=== PATIENT | female | born 1940 | race Caucasian/White ===

== ENCOUNTER 2024-03-02 15:41 | Emergency (ER) | payer OTHER, SELFPAY ==
[2024-03-02 15:45] VITALS: BP 119/73
[2024-03-02 15:48] VITALS: BP 119/73
[2024-03-02 15:52] VITALS: BMI 23.0
[2024-03-02 16:00] VITALS: BP 122/70
--- NOTE | 2024-03-02 16:02 | ED.GENMED ---
History of Present Illness
General
Chief Complaint: Allergic Reaction
Source: patient
Exam Limitations: none
Time Seen by Provider: 03/02/24 15:51
History of Present Illness
History of Present Illness:
83-year-old female apparently had been outside briefly to help with a worker. She was stung by something that caused sudden pain in her right foot. This apparently was followed by diaphoresis lightheadedness and a rash. Medics were called. She
was given 50 of Benadryl and fluids. She is much better at this time. She does feel slightly groggy. She had no airway issues or breathing issues. No history of same.
Past History
Past History
ED Past Medical History: None
ED Past Surgical History: None
Review of Systems
Review of Systems
All Other Systems: Not applicable
Respiratory: Reports no symptoms
Cardiac: Reports no symptoms
Phy Exam
Physical Exam
Physical Exam:
GENERAL: Alert and oriented in no apparent distress. Slightly groggy
EYE: Orbits normal.
NECK: Supple, no significant adenopathy.
ENT: Pharynx without erythema. No drooling no stridor no airway issues
CARDIAC: Regular rate and rhythm without any obvious murmurs.
LUNGS: Clear breath sounds,normal
ABDOMEN: Soft, without focal tenderness or distention
NEUROLOGICAL: Alert and oriented , grossly non-focal
Skin: Discrete area of erythema to the right medial foot just below the medial malleolus. Approximately 10 cm round. Maculopapular rash somewhat linear in nature across her mid abdomen and across her lower back with some involvement of the legs.
Blanching.
MUSCULOSKELETAL: No edema,no deformity.Good color
PSYCH: Normal and appropriate interaction. Mildly groggy
Course
Orders/Labs/Results
Orders:
Orders
03/02/24 15:54
EKG [Electrocardiogram (*1)] Urgent
Reason for Study: Bradycardia / Tachycardia
EKG- Treatment ONCE
03/02/24 15:55
Basic Metabolic Panel Urgent
Complete Blood Count/With Diff Urgent
03/02/24 16:01
Cardiac Monitoring- Treatment ONCE
IV Insert/Care/Rem.- Treatment PRN
Dexamethasone Sod Phosphate [Decadron] 8 mg IV NOW STA
Famotidine [Pepcid] 20 mg IV NOW STA
Pulse Ox/cont/shift [RESP] Stat
Quantity: 1
Abnormal Lab Results
03/02/24
15:55
RBC 3.60 L 10^6/uL
(4.20-5.40)
Hgb 11.5 L g/dL
(12.0-16.0)
Hct 32.6 L %
(37.0-47.0)
MCH 31.9 H pg
(27.0-31.0)
Chloride 108 H mmol/L
(98-107)
BUN 19 H mg/dl
(7-17)
03/02/24 15:55
03/02/24 15:55
Vital Signs
Initial and Last Documented VS:
Initial Vital Signs
Pulse BP Pulse Ox
59 119/73 95
03/02/24 15:45 03/02/24 15:45 03/02/24 15:45
Last Documented Vital Signs
Temp Pulse Resp BP Pulse Ox
98.1 F 57 14 97/76 98
03/02/24 15:48 03/02/24 17:45 03/02/24 17:45 03/02/24 17:01 03/02/24 16:30
MDM/Problems Addressed
Differential Diagnosis Includes:
This is all consistent with an allergic reaction. Patient improved significantly with Benadryl. Will add Pepcid and steroids. No indication for epinephrine at this time.
*Pulse Oximetry
Patient hypoxic: no
*EKG
Interpreted by ED Provider?: Yes
Interpretation: abnormal
Comparison EKG: no comparison EKG present
Heart Rate: 55
Rate: bradycardiac
Rhythm: sinus
[place]: normal axis
Interval: normal interval
QRS Pattern: normal QRS
Ischemia: non-specific ST changes
*Ceo And President Interpretation
Rate: bradycardiac
Interpretation: normal
Heart Rate: 56
Rhythm: sinus
*Critical Care Note
Total Time (30-74mins, 75-104mins- exclusive of procedures): Not Applicable
Update Note
Update Note:
1655.... Patient has remained stable. Stable vital signs. Airway clear. Rash on the abdomen and back almost resolved.
1800... Patient appears well. Rash has resolved. Discharged to follow-up
ED Attending Note
-
Portions of this chart may have been created with voice recognition software.� Occasional wrong word or��sound alike� substitutions may have occurred due to the inherent limitations of voice recognition software.
Discharge Plan
Departure
Patient Disposition: Home (Routine Discharge)
Date of Disposition: 03/02/24
Time of Disposition: 18:00
Patient with high blood pressure during this ER visit?: No
Discharge Problem:
Acute allergic reaction, Insect bite
Instructions: Allergic Reaction ED, Insect Bites and Stings ED, BLOOD PRESSURE
Prescriptions:
New
prednisone 20 mg tablet
40 mg PO DAILY 3 Days Qty: 6 0RF
Referrals:
UNKNOWN - PT DOES,NOT KNOW [Family Provider] - Follow up in 2-3 days
Activity Restrictions/Additional Instructions:
Take a Claritin for the next few days
Take a Pepcid for the next few days
Interventions
Interventions:
*Risk Screen - Suicide Last Done: 03/02/24 15:53
*General Assessment Last Done: 03/02/24 15:53
*Neglect/Abuse Screening Last Done: 03/02/24 15:53
ED- Fall Risk Assessment Last Done: 03/02/24 18:29
*ED COVID-19 Vaccine History Last Done: 03/02/24 15:53
*Nursing Disposition Last Done: 03/02/24 18:29
ED- Cardiac Assessment Last Done: 03/02/24 16:12
ED- Pulmonary Assessment Last Done: 03/02/24 16:12
ED-Skin Assessment Last Done: 03/02/24 16:21
Discharge Date and Time
Discharge Date/Time: 03/02/24 18:30
Print Language: MOHAWK
[2024-03-02 16:03] LABS: % Basophils 0.2 % (0-2); % Eosinophils 0.7 % (0-6); % Immature Granulocytes 0.3 % (0-0.5); % Lymphocytes 33.1 % (20.5-51.1); % Monocytes 6.9 % (1.7-9.3); % Neutrophils 58.8 % (42.2-75.2); Absolute Monocytes 0.4 10^3/uL (0.1-0.6); Absolute Neutrophils 3.6 10^3/uL (1.4-6.5); Hematocrit 32.6 % (37.0-47.0); Hemoglobin 11.5 g/dL (12.0-16.0); Mean Corp Hgb Conc. 35.3 g/dL (33.0-37.0); Mean Corpuscular Hgb 31.9 pg (27.0-31.0); Mean Corpuscular Volume 90.6 fL (81.0-99.0); Mean Platelet Volume 8.2 fL (7.4-10.4); Nucleated Red Blood Cells % 0 %; Platelet Count 305 10^3/uL (130-400); Red Cell Dist. Width 12.9 % (11.5-14.5); White Blood Cell Count 6.1 10^3/uL (4.8-10.8)
[2024-03-02] MEDS: DECADRON 8 MG IV (16:15)
[2024-03-02] MEDS: PEPCID 20 MG IV (16:15)
[2024-03-02 16:19] LABS: Blood Urea Nitrogen 19 mg/dl (7-17); Calcium 8.7 mg/dl (8.4-10.2); Carbon Dioxide 24 mmol/L (22-30); Chloride 108 mmol/L (98-107); Estimated Creatinine Clearance 64 ml/min; Glucose 97 mg/dl (70-99); Sodium 139 mmol/L (135-145); eGFR > 60.00
[2024-03-02 17:01] VITALS: BP 97/76
== END 2024-03-02 18:30 | disposition home or self-care (01) ==
LOC: EMR 15:41
PROVIDERS: EMERGENCY PHYSICIAN Emergency Medicine
DX: T78.40XA Allergy, unspecified, initial encounter (principal); R21 Rash and other nonspecific skin eruption; M79.671 Pain in right foot; R61 Generalized hyperhidrosis; R42 Dizziness and giddiness; W57.XXXA Bitten or stung by nonvenomous insect and other nonvenomous arthropods, initial encounter
CPT/HCPCS: 99284; 96374; 96375; 94760; 80048; 85025; 93005

== ENCOUNTER → 2024-08-29 09:17 | Outpatient (REF) | payer OTHER, SELFPAY | LOC: HWWDC 09:17 | PROVIDERS: ATTENDING PHYSICIAN Family Medicine | DX: R41.89 Other symptoms and signs involving cognitive functions and awareness (principal); R47.89 Other speech disturbances; F99 Mental disorder, not otherwise specified; Z12.31 Encounter for screening mammogram for malignant neoplasm of breast | CPT/HCPCS: 70450; 77063; 77067 ==

== ENCOUNTER 2025-01-08 08:35 | Outpatient (RCR) | payer OTHER, SELFPAY | END 2025-01-08 23:59 | disposition home or self-care (01) | LOC: ROT 08:35 | PROVIDERS: ATTENDING PHYSICIAN Family Medicine | DX: F03.90 Unspecified dementia, unspecified severity, without behavioral disturbance, psychotic disturbance, mood disturbance, and anxiety (principal); Z73.6 Limitation of activities due to disability; F01.B0 Vascular dementia, moderate, without behavioral disturbance, psychotic disturbance, mood disturbance, and anxiety; F81.0 Specific reading disorder; R41.3 Other amnesia; R41.840 Attention and concentration deficit; R47.01 Aphasia; R25.1 Tremor, unspecified | CPT/HCPCS: 97167; 97535 ==

== ENCOUNTER 2025-02-05 16:22 | Outpatient (RCR) | payer OTHER, SELFPAY | END 2025-02-05 23:59 | disposition home or self-care (01) | LOC: ROT 16:22 | PROVIDERS: ATTENDING PHYSICIAN Family Medicine | DX: F03.90 Unspecified dementia, unspecified severity, without behavioral disturbance, psychotic disturbance, mood disturbance, and anxiety (principal); R41.840 Attention and concentration deficit (principal); R41.844 Frontal lobe and executive function deficit; R47.01 Aphasia; F81.0 Specific reading disorder; Z73.6 Limitation of activities due to disability; F01.A0 Vascular dementia, mild, without behavioral disturbance, psychotic disturbance, mood disturbance, and anxiety; R25.1 Tremor, unspecified | CPT/HCPCS: 97530 ==

== ENCOUNTER 2025-02-10 11:40 | Outpatient (RCR) | payer OTHER, SELFPAY | END 2025-02-10 23:59 | disposition home or self-care (01) | LOC: ROT 11:40 | PROVIDERS: ATTENDING PHYSICIAN Family Medicine | DX: R41.840 Attention and concentration deficit (principal); R41.844 Frontal lobe and executive function deficit; R47.01 Aphasia; F81.0 Specific reading disorder; Z73.6 Limitation of activities due to disability; F01.A0 Vascular dementia, mild, without behavioral disturbance, psychotic disturbance, mood disturbance, and anxiety; R25.1 Tremor, unspecified | CPT/HCPCS: 92507; 92523; 97530; 97535 ==

== ENCOUNTER 2025-04-07 07:11 | Outpatient (RCR) | payer OTHER, SELFPAY | END 2025-04-07 23:59 | disposition home or self-care (01) | LOC: ROT 07:11 | PROVIDERS: ATTENDING PHYSICIAN Family Medicine | DX: R41.840 Attention and concentration deficit (principal); R41.844 Frontal lobe and executive function deficit; R47.01 Aphasia; F81.0 Specific reading disorder; Z73.6 Limitation of activities due to disability; F01.A0 Vascular dementia, mild, without behavioral disturbance, psychotic disturbance, mood disturbance, and anxiety; R25.1 Tremor, unspecified; F01.C0 Vascular dementia, severe, without behavioral disturbance, psychotic disturbance, mood disturbance, and anxiety; M35.3 Polymyalgia rheumatica; R47.89 Other speech disturbances; R41.841 Cognitive communication deficit | CPT/HCPCS: 92507; 97530; 97535 ==

== ENCOUNTER 2025-05-08 07:18 | Outpatient (RCR) | payer OTHER, SELFPAY | END 2025-05-08 23:59 | disposition home or self-care (01) | LOC: ROT 07:18 | PROVIDERS: ATTENDING PHYSICIAN Family Medicine | DX: R41.840 Attention and concentration deficit (principal); R41.844 Frontal lobe and executive function deficit; R47.01 Aphasia; F81.0 Specific reading disorder; Z73.6 Limitation of activities due to disability; F01.A0 Vascular dementia, mild, without behavioral disturbance, psychotic disturbance, mood disturbance, and anxiety; R25.1 Tremor, unspecified; M35.3 Polymyalgia rheumatica; R47.89 Other speech disturbances; R41.841 Cognitive communication deficit | CPT/HCPCS: 92507; 97530; 97535 ==

== ENCOUNTER 2025-05-15 09:24 | Outpatient (RCR) | payer OTHER, SELFPAY | END 2025-05-15 23:59 | disposition home or self-care (01) | LOC: ROT 09:24 | PROVIDERS: ATTENDING PHYSICIAN Family Medicine | DX: R41.840 Attention and concentration deficit (principal); R41.844 Frontal lobe and executive function deficit; R47.01 Aphasia; F81.0 Specific reading disorder; Z73.6 Limitation of activities due to disability; F01.A0 Vascular dementia, mild, without behavioral disturbance, psychotic disturbance, mood disturbance, and anxiety; R25.1 Tremor, unspecified; M35.3 Polymyalgia rheumatica; R47.89 Other speech disturbances; R41.841 Cognitive communication deficit | CPT/HCPCS: 92507; 97530; 97535 ==

== ENCOUNTER 2025-07-17 16:51 | Observation (INO) | payer OTHER, SELFPAY ==
[2025-07-17 11:39] VITALS: BP 149/72
--- NOTE | 2025-07-17 12:53 | ED.GENMED ---
History of Present Illness
General
Chief Complaint: Head Injury
Source: patient
Time Seen by Provider: 07/17/25 12:00
History of Present Illness
History of Present Illness:
84-year-old female with no reported past medical history presents the emergency department with a friend for evaluation after she had an accidental fall at home today stating she just tripped over her own feet and onto the ground believing she fell
onto cement surface. Patient struck the back of her head on the ground and has a mild headache, no LOC, no vomiting, no visual changes or extremity related injuries. Patient is not on any anticoagulant medication. She was able to get herself up
off the ground and go inside, made herself a hot bath and then contacted her friend who came over to get her. Patient's friend brought her to urgent care but was referred to the ER for further evaluation. Patient notes that this is her first fall.
Friend is concerned about patient's wellbeing as she currently lives on her own.
Past History
Past History
ED Past Medical History: None
ED Past Surgical History: None
Social History
Tobacco: Non-smoker
Alcohol: None
Drug: None
Personal:
Living: alone
Review of Systems
Review of Systems
All Other Systems: ROS reviewed and negative except as documented in HPI and ROS
Phy Exam
Physical Exam
Physical Exam:
GENERAL: Alert , in no apparent distress
EYE: clear conjunctiva b/l
HEAD: Small contusion mid occiput
NECK: No focal midline tenderness
ENT: o/p clr, mmm.
CARDIAC: Regular rate and rhythm .
LUNGS: Clear breath sounds bilaterally, no acute respiratory distress, no wheezes/rales/rhonchi
ABDOMEN: Soft, without focal tenderness, no r/g, no cvat
NEUROLOGICAL: Alert and oriented to self only, not place or time
SKIN: Warm and dry, skin intact.
MUSCULOSKELETAL: well perfused.
PSYCH: Normal and appropriate interaction.
Scores
Heart Failure Risk
Heart Failure Risk Score: Not Applicable
Heart Score for Chest Pain Patients
STEMI patient?: Not applicable
Withdrawal Assessment of Alcohol
Withdrawal Assessment Completed?: Not applicable
Course
Orders/Labs/Results
Orders:
Orders
07/17/25 12:06
CT Cervical Spine W/o Iv Contr Urgent
Comment:
Reason For Exam: fall, head/neck injury
CT Head W/o Iv Contrast Urgent
Comment:
Reason For Exam: fall, head/neck injury
07/17/25 12:14
Case Management Consult ONCE
Case Management Consult: VN/Home Care
07/17/25 13:39
Physical Therapy Consult [Pt Eval And Treat] Urgent
Activity Level: Ambulate
07/17/25 15:16
Complete Blood Count/With Diff Urgent
Comprehensive Metabolic Panel Urgent
07/17/25 15:27
Urinalysis Reflex To Culture Urgent
Date Specimen was Collected: 07/17/25
Time Specimen was Collected: 15:25
Urine Microscopic Reflex Cult Urgent
Urine Culture Urgent
ZAHEER Source: U
Specimen Description:
Date Specimen was Collected: 07/17/25
Time Specimen was Collected: 15:25
07/17/25 16:24
Admit/Transfer Patient As Directed
Co-Sign Provider:
Level of Care: Observation services
Assign to:: Medical/Surgical
Physician / Group: htay
Diagnosis: Fall, unsteady due to IV Benadrl forADE to insect bite
07/17/25 16:26
Code Status As Directed
Resuscitation Status: Full Code
Abnormal Lab Results
07/17/25 07/17/25
15:16 15:27
WBC 12.0 H 10^3/uL
(4.8-10.8)
RBC 3.93 L 10^6/uL
(4.20-5.40)
Hct 36.8 L %
(37.0-47.0)
MCH 31.8 H pg
(27.0-31.0)
Absolute Neuts (auto) 9.6 H 10^3/uL
(1.4-6.5)
Absolute Monos (auto) 0.7 H 10^3/uL
(0.1-0.6)
Neutrophils % 80.1 H %
(42.2-75.2)
Lymphocytes % 13.4 L %
(20.5-51.1)
Creatinine 0.5 L mg/dL
(0.6-1.0)
Glucose 141 H mg/dl
(70-99)
Ur Occult Blood Reflex 2+ A
(Negative)
Leukocyte Esterase Rfl 2+ A
(Negative)
Urine WBC (Reflex) 11-15 A /HPF
(0-5)
Urine Bacteria (Reflex) Moderate A
(Negative)
07/17/25 15:16
07/17/25 15:16
Vital Signs
Initial and Last Documented VS:
Initial Vital Signs
Temp Pulse Resp BP Pulse Ox
98.4 F 62 18 149/72 99
07/17/25 11:39 07/17/25 11:39 07/17/25 11:39 07/17/25 11:39 07/17/25 11:39
Last Documented Vital Signs
Temp Pulse Resp BP Pulse Ox
98.7 F 71 18 134/58 99
07/17/25 15:03 07/17/25 15:03 07/17/25 15:03 07/17/25 15:03 07/17/25 15:03
MDM/Problems Addressed
Differential Diagnosis Includes:
Accidental fall
Contusion
Concussion
ICH
Calvarial injury
Dementia
eligibility services representative referall
MDM/Problems Addressed:
84-year-old female presenting to the ER for evaluation following an accidental fall resulting in minor head injury. Patient without any LOC, did not take anything for her pain prior to arrival and is currently declining anything. Patient here with
a close friend who is concern for patient's overall wellbeing and intubated patient has had some functional decline recently. Currently does not have any family that lives close by and is concern for patient's safety. Will obtain a case management
consult to help facilitate further care in the home. CT of the head and cervical spine ordered.
*Radiology
Radiology exam reviewed: radiology read reviewed
*Pulse Oximetry
SaO2: 99
Oxygen Mode of Delivery: Room air
Patient hypoxic: no
*Critical Care Note
Total Time (30-74mins, 75-104mins- exclusive of procedures): Not Applicable
Patient Management
Social determinants of health affecting care: Living situation and Poor outpatient follow-up
Discussion with other providers: Hospitalist and Other
Escalation/DeEscalation of care consider admission/obs:
Patient seen by physical therapy who states patient cannot safely be discharged home and recommend rehab/SNF. Patient is adamant she is not going to a rehab or SNF facility and that she only wants to be discharged home. Patient does not have any
family that lives locally that can come and stay with her this evening. I spoke to the patient's daughter who is the listed emergency contact who lives outside of the [place] area and would be able to pick and shovel man the patient from the hospital tomorrow and
assumed care for the patient. Will check labs and urine with plan to admit to the hospitalist team as patient cannot be safely discharged home.
ED Attending Note
-
Portions of this chart may have been created with voice recognition software.� Occasional wrong word or��sound alike� substitutions may have occurred due to the inherent limitations of voice recognition software.
Discharge Plan
Departure
Patient Disposition: Admit
Date of Disposition: 07/17/25
Time of Disposition: 15:56
Presentation/result/management discussed w/ accepting MD/DO: Hospitalist
Discharge Problem:
Accidental fall, Dementia
Prescriptions:
No Action
rosuvastatin [Crestor] 5 mg Tablet
5 mg PO DAILY
Referrals:
Leana Murillo MD [Family Provider, Family Practice]
Interventions
Interventions:
*Risk Screen - Suicide Last Done: 07/17/25 11:39
*General Assessment Last Done: 07/17/25 11:39
*Neglect/Abuse Screening Last Done: 07/17/25 11:39
*ED- Fall Risk Assessment Last Done: 07/17/25 12:31
*ED COVID-19 Vaccine History Last Done: 07/17/25 12:31
*ED Influenza Vaccine History Last Done: 07/17/25 12:31
ED- Neurological Assessment Last Done: 07/17/25 12:31
ED-Skin Assessment Last Done: 07/17/25 12:31
Discharge Date and Time
Print Language: MOZAMBICAN
--- NOTE | 2025-07-17 13:39 | EDCM ---
Chart reviewed Consult received
Spoke with patient and her friend Kisha
Lives alone in a 2nd story home. [address]
Pt is NOT driving but able to cook her meals
States her one son lives in [place]
Another son in [facility] would coordinate [facility] for her appointments
Dtr Sue is local?
LVM with Sue
PCP Dr. Stephens
RX plan yes
Pharmacy [facility]
hx of [facility]
no hx of SNF
DCP : discussed with SHERIDAN Ruiz. PT consult pending
Cm will continue to follow up for dcp needs
[2025-07-17 14:02] VITALS: BP 138/86
[2025-07-17 15:03] VITALS: BP 134/58
[2025-07-17 15:04] VITALS: BMI 24.6
[2025-07-17 15:23] LABS: Hematocrit 36.8 % (37.0-47.0); Hemoglobin 12.5 g/dL (12.0-16.0); Mean Corp Hgb Conc. 34.0 g/dL (33.0-37.0); Mean Corpuscular Volume 93.6 fL (81.0-99.0); Nucleated Red Blood Cells % 0 %; Platelet Count 334 10^3/uL (130-400); Red Cell Dist. Width 12.8 % (11.5-14.5)
[2025-07-17 15:41] LABS: ALT (SGPT) 25 U/L (0-35); AST (SGOT) 26 U/L (14-36); Albumin 4.8 g/dl (3.5-5.0); Alkaline Phosphatase 46 U/L (38-126); Blood Urea Nitrogen 12 mg/dl (7-17); Calcium 9.6 mg/dl (8.4-10.2); Carbon Dioxide 28 mmol/L (22-30); Chloride 104 mmol/L (98-107); Estimated Creatinine Clearance 58 ml/min; Glucose 141 mg/dl (70-99); Potassium 4.3 mmol/L (3.5-5.1); Sodium 140 mmol/L (135-145); Total Protein 7.8 g/dl (6.3-8.2); eGFR > 60.00
--- NOTE | 2025-07-17 15:47 | CM ---
Dtr Sue called from [place] [phone]
Dtr reported that patient was getting worked up for 'vascular dementia' by her PCP
PT consult reviewed
Spoke with patient and her friend Esme at ED bedside.
Patient is agreeable with plan to stay overnight. Per Esme dtr Sue [place] coming [place] tomorrow from [place]
Cm will continue to follow up for dcp needs
[2025-07-17 16:02] LABS: Urine Character Clear (Clear)
--- NOTE | 2025-07-17 16:13 | HPS.HSE ---
Family Physician
-
Family Physician: Leana Murillo MD
Chief Complaint
-
Fall/unable to ambulate safely
History of Present Illness
HPI�
84F Lives alone, recently loss the spouse HX Dementia ( process of workimg up ) seen at ER:
- BiB patient friend and she left - per ER ROADWAY ENGINEER Friend is concerned about patient's wellbeing as she currently lives on her own.
- for evaluation s/p accidental fall at home today
- stating she just tripped over her own feet and onto the ground believing she fell onto cement surface.
- struck the back of her head on the ground
- reports mild [place] , no LOC, no vomiting, no visual changes or extremity related injuries per ER ROADWAY ENGINEER HPI
- not on any anticoagulant medication.
- Patient's friend brought her to urgent care but was referred to the ER for further evaluation.
Medical History
Past Medical History
Past Medical History: Reports Dementia (per document ) and Hypercholesterolemia
Past Surgical History: Reports None
Social History
Tobacco: Non-smoker
Alcohol: None
Family History
Family History: Not pertinent
Allergies / Home Medications
Allergies reflects when Allergies were last updated in [facility].
Home Medications with original date entered in [facility]
Allergy/Medication List:
Allergies
Allergy/AdvReac Type Severity Reaction Status Date / Time
No Known Allergies Allergy Verified 07/17/25 15:05
Home Medications
rosuvastatin 5 mg tablet (Crestor) 5 mg PO DAILY High Cholesterol 07/17/25
Review of Systems
-
Constitutional: Reports See HPI
EENT: Reports No Symptoms
Respiratory: Reports No Symptoms
Cardiac: Reports No Symptoms
Abdomen/GI: Reports No Symptoms
: Reports No Symptoms
Musculoskeletal: Reports No Symptoms
Skin: Reports No Symptoms
Neurological: Reports See HPI
Endocrine: Reports No Symptoms
Hematologic/Lymphatic: Reports No Symptoms
Psych: Reports No Symptoms
Physical Exam
Vital Signs
Vital Signs
Temp Pulse Resp BP Pulse Ox
98.7 F 71 18 134/58 99
07/17/25 15:03 07/17/25 15:03 07/17/25 15:03 07/17/25 15:03 07/17/25 15:03
Physical Exam
General: No Apparent Distress and Other (looks drowsy )
HEENT: NormoCephalic and Anicteric
Respiratory: Clear; No Wheezes
Cardiac: S1/S2 and Regular Rhythm; No Bradycardia or Tachycardia
Breast: Deferred by me
GI: Soft, Non Tender and Non Distended
Musculoskeletal: No Edema
Skin: Warm
Neuro: Alert and Nonfocal/grossly intact; No Oriented, Slurred Speech or Facial Droop
Psych: Calm, Confused and Other (apparent dementia )
Laboratory Results
-
07/17/25 15:16
07/17/25 15:16
Laboratory Results
Total Bilirubin 0.6 mg/dl (0.2-1.3) 07/17/25 15:16
AST 26 U/L (14-36) 07/17/25 15:16
ALT 25 U/L (0-35) 07/17/25 15:16
Alkaline Phosphatase 46 U/L (38-126) 07/17/25 15:16
Data Reviewed
-
CT Scan: Report Reviewed by me
Medical Tests (Nuc Med, Echo, EKG etc): Report Reviewed by me
Lab Data: Labs Reviewed by me
Impression/Plan
-
Vital Signs
Temp Pulse Resp BP Pulse Ox
98.7 F 71 18 134/58 99
07/17/25 15:03 07/17/25 15:03 07/17/25 15:03 07/17/25 15:03 07/17/25 15:03
Labs
07/17/25
15:16
WBC 12.0 H
Hgb 12.5
Plt Count 334
Potassium 4.3
Carbon Dioxide 28
BUN 12
Creatinine 0.5 L
eGFR > 60.00
Glucose 141 H
EKG
SINUS BRADYCARDIA WITH 1ST DEGREE A-V BLOCK
RSR' OR QR PATTERN IN V1 SUGGESTS RIGHT VENTRICULAR CONDUCTION DELAY
BORDERLINE ECG
NO PREVIOUS ECGS AVAILABLE
Confirmed by KACI DEAN DO ([id number]) on 03/04/2024 12:26:00 PM
Combined report of HCT plus CT Cervical Spine W/o Iv Contr; CT Head W/o Iv Contrast
1. No acute intracranial abnormality noted.
2. No acute fracture or subluxation of the cervical spine.
Multilevel degenerative changes of the cervical spine.
NO PRIOR hospitalist admission:
ASSESSMENT & PLAN
Fall - no significant injury
- NEG HCT
- NEG CT Cx spien
- Stable HD status
- Fall precaution
- PT/OT
- CRM follow up for safe disposition
- Observation
Dementia
- Lives alone
- Recent loss of the spouse
HLD
- on Rosuvastatin
Hospitalist discussed the case with Daughter Sue [employer]
- she will come in the morning and will d/w primary hosptalist of the morning
DVT Px: SQH
Full code
OBS MS
[2025-07-17 16:14] LABS: Urine Red Blood Cell 0-2 /HPF (0-2)
[2025-07-17 18:28] VITALS: BP 165/75; BMI 23.1
--- NOTE | 2025-07-17 18:51 | PTCARENOTE ---
pt new admission. pt is confused w/ hx of dementia. pt is AAO*self, room air. denies any pain. neurochecks. Q4h. pt is on bed alarm. call membreno within the reach. oriented to the room.
[2025-07-17 19:24] VITALS: BP 132/58
[2025-07-17] MEDS: HEPARIN 5000 UNITS SC (19:37)
[2025-07-18 03:52] VITALS: BP 108/62
[2025-07-18 07:10] VITALS: BP 125/74
--- NOTE | 2025-07-18 07:49 | W.PN.HOSP.TC ---
Today's Communication/Plan
-
Discharge today
Assessment / Plan
Assessment / Plan
Physical Exam
General: No Apparent Distress
HEENT: Normocephalic
Respiratory: Clear to Auscultation Bilaterally
Cardiac: S1/S2 and Regular Rhythm
GI: Soft, Non Tender and Non Distended. Positive bowel sounds.
Musculoskeletal: No Edema
Skin: Warm. Dry.
Neuro: Alert, Awake and Oriented x3, Cranial Nerves 2 through 12 grossly intact, strength and sensation grossly intact bilaterally in both upper and lower extremities. Finger to nose intact.
Psych: Calm
Assessment/Plan
Fall - no significant injury
- NEG HCT
- NEG CT Cx spine
- Stable HD status
- Fall precaution
- PT/OT
- CRM follow up for safe disposition
- Doing well, no new problems today, okay for discharge home with patient's daughter who will be with the patient this weekend
Multilevel degenerative changes of the cervical spine
Dementia
- Lives alone
- Recent loss of the spouse
Hyperlipidemia
- on Rosuvastatin
Hospitalist discussed the case with Daughter Sue [employer]
- she will come in the morning and will d/w primary hosptalist of the morning
DVT Prophylaxis: subq Heparin
Full code
I spoke extensively with both patient and her daughter today, and I answered all of their questions and concerns to satisfaction.
More than 30 minutes spent in discharge including
Final examination of the patient
Summarizing hospital stay
Instructions for continuing care to all relevant caregivers
Preparation of discharge records, prescriptions, and referral forms
Total time spent (in minutes): 38
Anticipated Discharge: Today
Subjective/Interval History
-
Date of Service: July 18, 2025
Patient was seen and examined. She said she is doing better today, no headache, chest pain, numbness, tingling, blurry vision or any new weakness.
Objective Data
-
Labs:
Laboratory Results
07/18/25
06:00
WBC Pending
Hgb Pending
Hct Pending
Plt Count Pending
Sodium Pending
Potassium Pending
Chloride Pending
Carbon Dioxide Pending
BUN Pending
Creatinine Pending
Glucose Pending
Calcium Pending
Vital Signs:
Vital Signs
Temp Pulse Resp BP Pulse Ox
98.3 F 65 18 125/74 95
07/18/25 07:10 07/18/25 07:10 07/18/25 07:10 07/18/25 07:10 07/18/25 07:10
I&O
07/17/25 07/18/25 07/19/25
06:59 06:59 06:59
Intake Total 120 / 120
Balance 120 / 120
[2025-07-18] MEDS: CRESTOR 5 MG PO (08:06)
[2025-07-18] MEDS: HEPARIN 5000 UNITS SC (08:06)
[2025-07-18 09:13] LABS: Hematocrit 35.0 % (37.0-47.0); Hemoglobin 11.8 g/dL (12.0-16.0); Mean Corp Hgb Conc. 33.7 g/dL (33.0-37.0); Mean Corpuscular Volume 95.1 fL (81.0-99.0); Platelet Count 316 10^3/uL (130-400); Red Cell Dist. Width 13.0 % (11.5-14.5)
[2025-07-18 09:39] LABS: Blood Urea Nitrogen 12 mg/dl (7-17); Calcium 9.3 mg/dl (8.4-10.2); Carbon Dioxide 27 mmol/L (22-30); Chloride 103 mmol/L (98-107); Estimated Creatinine Clearance 60 ml/min; Glucose 97 mg/dl (70-99); Potassium 4.3 mmol/L (3.5-5.1); Sodium 135 mmol/L (135-145); eGFR > 60.00
[2025-07-18 10:06] LABS: TSH 1.75 uIU/ml (0.47-4.68)
--- NOTE | 2025-07-18 10:26 | VNURNOTE ---
Home Health Liaison met with patient and daughter Sue at bedside to discuss [facility] nurse/therapy, visits, schedule and homebound status. They are agreeable and understand that visits at home will be 2-3 x per week to assess and teach medical
management. They are aware that [facility] will contact them for start of care within a week after discharge from . Provided contact number for [facility]. Per daughter request, noted on referral to call her to arrange visits. She is up from [place] and
will be in the area over the weekend. She is deciding between taking pt home w/ her to [place] or arranging VN up here with CGs.
[facility] referral completed in [facility].
[2025-07-18 11:19] VITALS: BP 115/75
--- NOTE | 2025-07-18 12:47 | W.DCSUMMARY ---
Discharge Summary
Discharge Data
Date of Admission: 07/17/25
Date of Discharge: 07/18/25
Total time spent discharging patient (in min): 38
-
Pending Results: No
Hospital Course
84 y/o female with past medical history of dementia and hyperlipidemia, presented after a mechanical fall. She hit her head during the fall, but denied any loss of consciousness. CT Head showed no acute intracranial abnormality, and CT Cervical
Spine showed no acute fracture or subluxation of the cervical spine, but it did show multilevel degenerative changes of the cervical spine. The next day, patient was doing well, no new neurologic deficits or issues, and she and her daughter felt
that patient was ready to go home. Patient was discharged to home, her daughter came from out of town to be with her and would decide on VN services in the following week.
Discharge Plan
-
Patient Disposition: Home (Routine Discharge)
Discharge Diagnosis/Procedures: Mechanical Fall
Multilevel degenerative changes of the cervical spine on CT Imaging, as per radiologist's report
Dementia
Hyperlipidemia
Condition: Good
Diet: As tolerated
Activity: As tolerated
Instructions: Preventing falls in adults
Referrals:
Leana Murillo MD [Family Provider, [facility]]
Prescriptions:
Continued
rosuvastatin [Crestor] 5 mg Tablet
5 mg PO DAILY
Discharge Orders:
Discharge Patient (As Directed); Ordered 07/18/25
Ordered By: Clayton Cunningham
Discharge Date and Time
Discharge Date/Time: 07/18/25 12:59
Print Language: DANISH
--- NOTE | 2025-07-18 13:21 | PTCARENOTE ---
pt's daughter stated pt received flu shot this year and got pneumo vaccine last year.
--- NOTE | 2025-07-18 13:28 | CM ---
Spoke with dtr regarding discharge plan. She is aware of the PT evaluation of skilled needs. Dtr does not wish to accept this recommendation.
Dtr accepted [facility] referral. Dtr will spend the weekend at the pt's home and assess her needs during that time. If pt needs to continue with VN for her safety then the dtr will agree to continue this service. Dtr will take pt home to her home in [place]
when she feels her mother is safe enough to travel by car. Dtr states she has many resources at her home for her mother's ongoing care; 'We went through this with my dad'
Dr Cunningham in agreement with the plan as outlined above.
Pt ambulated with her dtr without at discharge.
== END 2025-07-18 12:59 | disposition home health service (06) ==
LOC: 4 EAST ACU 16:51
PROVIDERS: Physician Assistant Medical; ADMITTING PHYSICIAN Internal Medicine; ATTENDING PHYSICIAN Hospitalist; EMERGENCY PHYSICIAN Emergency Medicine; FAMILY PHYSICIAN Family Medicine
DX: R51.9 Headache, unspecified (principal); M54.2 Cervicalgia; W01.198A Fall on same level from slipping, tripping and stumbling with subsequent striking against other object, initial encounter; Y93.01 Activity, walking, marching and hiking; Y92.009 Unspecified place in unspecified non-institutional (private) residence as the place of occurrence of the external cause; F03.90 Unspecified dementia, unspecified severity, without behavioral disturbance, psychotic disturbance, mood disturbance, and anxiety; M47.812 Spondylosis without myelopathy or radiculopathy, cervical region; E78.00 Pure hypercholesterolemia, unspecified; Z60.2 Problems related to living alone; Z79.899 Other long term (current) drug therapy
CPT/HCPCS: 70450; 72125; 80048; 80053; 81003; 81015; 84443; 85025; 85027; 87086; 99284; G0378

== ENCOUNTER → 2025-09-01 09:01 | Outpatient (REF) | payer OTHER, SELFPAY | LOC: HWWDC 09:01 | PROVIDERS: ATTENDING PHYSICIAN Family Medicine | DX: Z12.31 Encounter for screening mammogram for malignant neoplasm of breast (principal) | CPT/HCPCS: 77063; 77067 ==